=== PATIENT | male | born 1990 | race African-American/Black ===

== ENCOUNTER 2017-09-18 11:59 | Emergency (ER) | payer MEDICAID ==
[~2017-09-18] VITALS: Ht 182.9 cm; Wt 72.0 kg
[2017-09-18 12:20] VITALS: BP 147/99
[2017-09-18] MEDS ORDERED: ELVI1TAB3 PO (12:25)
[2017-09-18] MEDS ORDERED: PENICILLIN G BENZATHINE 2,400,000 UNITS/4ML SYR IM ONE (16:45)
== END 2017-09-18 17:23 | disposition home or self-care (01) ==
LOC: ER 12:34
DX: A53.9 Syphilis, unspecified (principal)
CPT/HCPCS: 96372; 99283; J0561